=== PATIENT | male | born 2000 | race Caucasian/White ===

== ENCOUNTER 2021-12-02 20:11 | Emergency (ER) | payer OTHER ==
[~2021-12-02] VITALS: Ht 165.1 cm; Wt 74.8 kg
[2021-12-02 21:22] LABS: Influenza A, PCR NEGATIVE (NEGATIVE); Influenza B, PCR NEGATIVE (NEGATIVE); Resp Syncytial Virus, PCR NEGATIVE (NEGATIVE); SARS-Cov-2 (COVID-19) PCR, MMC NEGATIVE (NEGATIVE)
[2021-12-02] MEDS ORDERED: ONDA4ODT MM (22:16)
== END 2021-12-02 22:33 | disposition home or self-care (01) ==
LOC: ER 20:11
PROVIDERS: Emergency Medicine
DX: R11.2 Nausea with vomiting, unspecified (principal); R51.9 Headache, unspecified; F17.210 Nicotine dependence, cigarettes, uncomplicated; Z20.822 Contact with and (suspected) exposure to COVID-19; Z88.2 Allergy status to sulfonamides
CPT/HCPCS: 0241U; 36415; 96374; 96375; 99284-25; A9270; J1885; J2405; J7030